=== PATIENT | male | born 1975 | race Caucasian/White ===

== ENCOUNTER 2020-12-16 10:53 | Emergency (ER) | payer OTHER ==
[~2020-12-16] VITALS: Ht 170.2 cm; Wt 81.2 kg
[2020-12-16] MEDS ORDERED: COZAAR25 MG PO (11:02)
[2020-12-16] MEDS ORDERED: CIPRO500 MG PO (16:28)
[2020-12-16] MEDS ORDERED: HIBICLENS118 ML TOP (16:28)
== END 2020-12-16 17:13 | disposition home or self-care (01) ==
LOC: ER 10:53
DX: L02.611 Cutaneous abscess of right foot (principal); A49.01 Methicillin susceptible Staphylococcus aureus infection, unspecified site